=== PATIENT | female | born 1980 | race Two or more races ===

== ENCOUNTER 2016-10-16 17:31 | Emergency (ER) | payer OTHER ==
[~2016-10-16] VITALS: Ht 160 cm; Wt 70.3 kg
[~2016-10-16 17:31] MED LIST: METF10002 PO
[2016-10-16 17:33] VITALS: BP 116/78
--- NOTE | 2016-10-16 17:57 | PHYS DOC ---
Past Medical History Past Medical History: Diabetes-Type II, High Cholesterol Past Surgical History: No Surgical History Alcohol Use: None Drug Use: None Adult General Chief Complaint Chief Complaint: LOWER BACK PAIN OR INJURY HPI HPI Patient is a 36 year old female with history of diabetes type 2 and high cholesterol who presents today with 10 out of 10 sharp bilateral low back pain that began one week ago. Patient denies the pain radiating to bilateral lower extremities. Denies any numbness or tingling to bilateral lower extremities. Denies any loss of bowel bladder function. Denies any trauma. Patient denies any urgency frequency or dysuria. She states she's had similar pain before. Review of Systems Review of Systems Constitutional: Denies fever or chills [] Eyes: Denies change in visual acuity, redness, or eye pain [] HENT: Denies nasal congestion or sore throat [] Respiratory: Denies cough or shortness of breath [] Cardiovascular: No additional information not addressed in HPI [] GI: Denies abdominal pain, nausea, vomiting, bloody stools or diarrhea [] : Denies dysuria or hematuria [] Musculoskeletal: Bilateral low back pain Integument: Denies rash or skin lesions [] Neurologic: Denies headache, focal weakness or sensory changes [] Endocrine: Denies polyuria or polydipsia [] Current Medications Current Medications Current Medications Medications (Trade) Dose Ordered Sig/Xenia Start Time Stop Time Status Last Admin Dose Admin Acetaminophen/ Hydrocodone Bitart (Lortab 5/325) 2 tab 1X ONCE 10/16/16 18:30 10/16/16 18:31 DC Cyclobenzaprine HCl (Flexeril) 10 mg 1X ONCE 10/16/16 18:30 10/16/16 18:31 DC Naproxen (Naprosyn) 500 mg 1X STAT 10/16/16 18:23 10/16/16 18:25 DC Allergies Allergies Allergies Coded Allergies Type Severity Reaction Last Updated Verified No Known Drug Allergies 10/07/13 No Physical Exam Physical Exam Constitutional: Well developed, well nourished, no acute distress, non-toxic appearance. [] HENT: Normocephalic, atraumatic, bilateral external ears normal, oropharynx moist, no oral exudates, nose normal. [] Eyes: PERRLA, EOMI, conjunctiva normal, no discharge. [] Neck: Normal range of motion, no tenderness, supple, no stridor. [] Cardiovascular:Heart rate regular rhythm, no murmur [] Lungs & Thorax: Bilateral breath sounds clear to auscultation [] Abdomen: Bowel sounds normal, soft, no tenderness, no masses, no pulsatile masses. [] Skin: Warm, dry, no erythema, no rash. [] Back: Diffuse tenderness paraspinal muscles of bilateral low lumbar region, no midline tenderness, no CVA tenderness. [] Extremities: No tenderness, no cyanosis, no clubbing, ROM intact, no edema. [] Neurologic: Alert and oriented X 3, normal motor function, normal sensory function, no focal deficits noted. [] Psychologic: Affect normal, judgement normal, mood normal. [] Current Patient Data Vital Signs Vital Signs Date Time Temp Pulse Resp B/P Pulse Ox O2 Delivery O2 Flow Rate FiO2 10/16/16 17:33 98.0 97 16 100 Room Air 98.0 Lab Values Laboratory Tests Test 10/16/16 17:50 Urine Collection Type Unknown Urine Color Yellow Urine Clarity Clear Urine pH 6.0 Urine Specific [place] >=1.030 Urine Protein Negativemg/dL (NEG-TRACE) Urine Glucose (UA) >=1000mg/dL (NEG) Urine Ketones (Stick) Negativemg/dL (NEG) Urine Blood Trace (NEG) Urine Nitrite Negative (NEG) Urine Bilirubin Negative (NEG) Urine Urobilinogen Dipstick 0.2mg/dL (0.2 mg/dL) Urine Leukocyte Esterase Negative (NEG) Urine RBC 0/HPF (0-2) Urine WBC 1-4/HPF (0-4) Urine Squamous Epithelial Cells Few/LPF Urine Bacteria Few/HPF (0-FEW) EKG EKG [] Radiology/Procedures Radiology/Procedures [] Course & Med Decision Making Course & Med Decision Making Pertinent Labs and Imaging studies reviewed. (See chart for details) Patient is in the ED with bilateral musculoskeletal low back pain no known injury, she has no signs of cauda equina syndrome. Negative urine hCG. Urine analysis is negative for infection, urine was noted for significant amount of glucose, patient states she has history of diabetes and follows up with her own doctor. Patient was given pain medicine in the ED. She was discharged with some pain medicines and instructed to continue following up with her doctor Nora Disclaimer Nora Disclaimer This electronic medical record was generated, in whole or in part, using a voice recognition dictation system. Departure Departure Impression: Primary Impression: Back pain Disposition: 01 HOME, SELF-CARE Condition: STABLE Referrals: NO PCP (PCP) Follow-up with your own doctor in the next 7 days Patient Instructions: Back Pain, Adult Additional Instructions: You were seen for back pain. Please follow-up with your own doctor next week. Come back to the ED if symptoms worsen especially if you have any loss of bowel or bladder function. Scripts Naproxen 500 Mg Tablet.dr1 Tab PO BID #60 TAB Ref 1 Prov:HELDER SKINNER APRN 10/16/16 Hydrocodone/Apap 5-325 ([place] 5-325 Tablet)1 Each Tablet1 Tab PO BID #60 TAB Prov:HELDER SKINNER APRN 10/16/16 Cyclobenzaprine Hcl 10 Mg Tablet1 Tab PO TID #30 TAB Prov:HELDER SKINNER APRN 10/16/16 Problem Qualifiers Primary Impression: Back pain Back pain location: low back pain Chronicity: acute Back pain laterality: bilateral Sciatica presence: without sciatica Qualified Code: M54.5 - Low back pain HELDER SKINNER APRN Oct 16, 2016 17:57
[2016-10-16 18:07] LABS: BILIRUBIN,URINE NEGATIVE (NEG); GLUCOSE,URINE >=1000 mg/dL (NEG); NITRITE,URINE NEGATIVE (NEG); PROTEIN,URINE NEGATIVE (NEG-TRACE); UROBILINOGEN,URINE 0.2 mg/dL (0.2 mg/dL)
[2016-10-16] MEDS ORDERED: NAPROXEN 500 MG TABLET PO STA (18:23)
[2016-10-16] MEDS ORDERED: HYDROCODONE/APAP 5/325MG TABLET. PO ONE (18:30)
[2016-10-16] MEDS ORDERED: CYCLOBENZAPRINE 10 MG TABLET. PO ONE (18:30)
[2016-10-16 18:36] LABS: BACTERIA,URINE FEW /HPF (0-FEW); RBC,URINE 0 /HPF (0-2); SQUAMOUS EPITHELIAL CELL,UR FEW /LPF
[2016-10-16] MEDS ORDERED: NAPR500T8 PO (19:00)
[2016-10-16] MEDS ORDERED: HYDR-971 PO (19:00)
[2016-10-16] MEDS ORDERED: CYCL10TA2 PO (19:00)
== END 2016-10-16 18:33 | disposition home or self-care (01) ==
LOC: ER 17:31
DX: M54.5 Low back pain (principal); E11.9 Type 2 diabetes mellitus without complications; E78.00 Pure hypercholesterolemia, unspecified
CPT/HCPCS: 81001; 81025; 99284

== ENCOUNTER → 2017-12-13 | Outpatient (CLI) | payer OTHER | END | disposition home or self-care (01) | LOC: KCIC 12:20 | DX: Z20.1 Contact with and (suspected) exposure to tuberculosis (principal) | CPT/HCPCS: 71045 ==